=== PATIENT | male | born 1995 | race African-American/Black ===

== ENCOUNTER 2020-07-28 11:16 | Emergency (ER) | payer OTHER ==
[~2020-07-28] VITALS: Ht 190.5 cm; Wt 89.5 kg
[2020-07-28 13:21] VITALS: BP 127/57
== END 2020-07-28 13:52 | disposition home or self-care (01) ==
LOC: M ED 11:16
DX: J02.9 Acute pharyngitis, unspecified (principal); J30.9 Allergic rhinitis, unspecified; B34.9 Viral infection, unspecified

== ENCOUNTER 2021-05-16 20:42 | Emergency (ER) | payer OTHER ==
[~2021-05-16] VITALS: Ht 188 cm; Wt 89.5 kg
[2021-05-17] MEDS ORDERED: IBUPROFEN 800 MG TAB PO ONE (00:20)
[2021-05-17 00:39] VITALS: BP 133/60
== END 2021-05-17 00:44 | disposition home or self-care (01) ==
LOC: M ED 20:42
DX: J09.X2 Influenza due to identified novel influenza A virus with other respiratory manifestations (principal); J02.8 Acute pharyngitis due to other specified organisms; Z87.01 Personal history of pneumonia (recurrent); F17.290 Nicotine dependence, other tobacco product, uncomplicated

== ENCOUNTER 2021-07-01 19:48 | Emergency (ER) | payer OTHER ==
[~2021-07-01] VITALS: Ht 188 cm; Wt 90.3 kg
[2021-07-01 19:50] VITALS: BP 140/74
== END 2021-07-02 02:05 | disposition left against medical advice (07) ==
LOC: M ED 19:48
DX: Z53.21 Procedure and treatment not carried out due to patient leaving prior to being seen by health care provider (principal)